=== PATIENT | male | born 1965 | race Caucasian/White ===

== ENCOUNTER → 2021-06-05 | Outpatient (CLI) | payer OTHER ==
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
== END ==
LOC: PF 08:31
PROVIDERS: ATTEND Family Medicine
DX: Z02.71 Encounter for disability determination (principal); M51.37 Other intervertebral disc degeneration, lumbosacral region; M48.07 Spinal stenosis, lumbosacral region; Z18.89 Other specified retained foreign body fragments
CPT/HCPCS: 72100; 94010